=== PATIENT | female | born 1965 | race Caucasian/White ===

== ENCOUNTER 2018-01-27 15:56 | Emergency (ER) | END 2018-01-27 19:32 | disposition home or self-care (01) ==

== ENCOUNTER 2018-04-10 06:22 | Day surgery (SDC) | END 2018-04-10 10:54 | disposition home or self-care (01) ==

== ENCOUNTER 2018-08-17 21:27 | Emergency (ER) | END 2018-08-18 02:14 | disposition home or self-care (01) ==

== ENCOUNTER 2019-02-05 05:57 | Day surgery (SDC) | payer BC ==
[~2019-02-05] VITALS: Ht 152.4 cm; Wt 55.1 kg
[~2019-02-05 05:57] MED LIST: ALBU8.5H8 INH; BENZ-6 PO; CETI10CA PO; IBUP-1542 PO
[2019-02-05 07:23] VITALS: Ht 152.4 cm; Wt 55.1 kg
[2019-02-05 07:35] VITALS: BP 124/74; PULSE 65; RESP 24
[2019-02-05 08:55] VITALS: BP 107/65; PULSE 72; RESP 17
[2019-02-05] MEDS ORDERED: FENTAnyl 50 MCG/ML VIAL ONE (09:37)
[2019-02-05] MEDS ORDERED: MIDAZOLAM 1 MG/ML 2 ML INJ ONE ×2 (09:38)
--- NOTE | 2019-02-05 20:47 | CONS ---
DATE OF ADMISSION: 02/05/2019 DATE OF CONSULTATION: PATIENT NAME: DONNA RIBERA TYPE OF CONSULTATION: Preoperative gastroenterology. Dear Dr. Frank: I thank you very much for this kind referral. HISTORY OF PRESENT ILLNESS: Ms. Donna Ribera is a 53-year-old female patient who has been referred t o me for further evaluation of change in the bowel habit with episodes of diarrhea. No past history of colon neoplasm. The patient never had screening colonoscopy. Appetite is good and no weight loss . No upper abdominal pain. Not on nonsteroidal anti-inflammatory agents. No history of gallstones or liver disease. Not a hypertensive or diabetic. No heart disease. Has bronchial asthma. No kidn ey disease. Status post surgery for tubal . SOCIAL HISTORY: Nonsmoker. No alcohol abuse. FAMILY HISTORY: No family history of gastrointestinal tract neoplasm. ALLERGIES: NO DRUG ALLERGIES. MEDICATIONS: Flovent inhaler. PHYSICAL EXAMINATION: VITAL SIGNS: She is 5 feet tall and weighs 124 pounds. HEART: Normal heart sounds. LUNGS: Clear. ABDOMEN: Soft, no masses. Normal bowel sounds. NEUROLOGIC: Normal. IMPRESSION: 1. Change in the bowel habit with episodes of diarrhea. 2. The patient never had screening colonoscopy. 3. Bronchial asthma. 4. Status post surgery for tubal . PLAN: Screening colonoscopy. The procedure and possible complications are well explained to the patient. She understands and cons ents to the procedure. I thank you once again. With warmest personal regards, Dictated By: MYA KENNEY/BEST Conf#: [id number] DID#: [id number]
== END 2019-02-05 11:42 | disposition home or self-care (01) ==
LOC: GIL 05:57
PROVIDERS: ATTEND Internal Medicine Gastroenterology
DX: Z12.11 Encounter for screening for malignant neoplasm of colon (principal); K64.8 Other hemorrhoids
CPT/HCPCS: 45380; 88305; J2250; J3010; Z7610

== ENCOUNTER 2019-07-14 13:32 | Emergency (ER) | payer BC ==
[~2019-07-14] VITALS: Wt 55.6 kg
[~2019-07-14 13:32] MED LIST changes: -BENZ-6 PO; -CETI10CA PO; +HYDR-4011 PO; -IBUP-1542 PO; +IBUP800T48 PO
[2019-07-14] MEDS ORDERED: ONDANSETRON 4 MG INJ IV STA (15:31)
[2019-07-14] MEDS ORDERED: morphine 4 MG/ML VIAL IV STA (15:31)
[2019-07-14] MEDS ORDERED: KETOROLAC 15 MG INJ IV STA (15:31)
[2019-07-14] MEDS ORDERED: SOD CHLORIDE 0.9% 500 ML IV ONE (16:00)
[2019-07-14] MEDS ORDERED: FAMOTIDINE 20 MG INJ IV ONE (16:00)
[2019-07-14 19:25] VITALS: BP 148/74; PULSE 78; RESP 20
== END 2019-07-14 19:26 | disposition home or self-care (01) ==
LOC: FTE 13:32
DX: R10.31 Right lower quadrant pain (principal); J45.909 Unspecified asthma, uncomplicated; Z87.891 Personal history of nicotine dependence
CPT/HCPCS: 76856; 80053; 81001; 85025; 96374; 96375; J1885; J2270; J2405; J7040; Z7502; Z7610